=== PATIENT | male | born 1960 | race Hispanic/Latino ===

== ENCOUNTER 2017-06-02 07:14 | Day surgery (SDC) | payer OTHER ==
[2017-04-27 15:41] VITALS: BMI 31.5
[2017-06-02] MEDS ORDERED: Sodium Chloride 0.9% 10 ML ONE (10:24)
[2017-06-02] MEDS ORDERED: Fentanyl 100 MCG/2 ML VIAL ONE ×3 (10:41→13:01)
[2017-06-02] MEDS ORDERED: Midazolam HCl 2 mg/2 ml Vial ONE (10:42)
[2017-06-02] MEDS ORDERED: Dexamethasone 20 MG/5 ML VIAL ONE (10:51)
[2017-06-02] MEDS ORDERED: Lidocaine 2% PF 10 ML AMP (For Epidural Use) ONE (10:51)
[2017-06-02] MEDS ORDERED: Ondansetron HCl/PF 4 MG/2 ML Vial ONE (10:51)
[2017-06-02] MEDS ORDERED: PHENYLEPHRINE-NS 100 MCG/ML 10 ML SYRINGE ONE (10:51)
[2017-06-02] MEDS ORDERED: Glycopyrrolate 0.2 MG/ML 5 ML SYRINGE ONE (10:51)
[2017-06-02] MEDS ORDERED: Propofol 200 MG/20 ML VIAL ONE (10:51)
--- NOTE | 2017-06-02 13:47 | OP ---
DATE OF PROCEDURE: 06/02/2017 SURGEON: Cam Britt M.D. CONCESSIONIST: Alma Delia Raman PA-C PROCEDURE: L4-5 laminectomy, posterolateral arthrodesis, pedicle screw instrumentation, demineraliz ed bone matrix, and local morselized autograft L4-5. PROCEDURE IN DETAIL: The patient was brought into the operating room, intubated. He was rolled in the prone position on gel-filled chest rolls. The previous incision was reopened and the L4-5 area was exposed. We performed complete L5 and inferior L4 laminectomies and removed the right L4-5 syno vial cyst, completely decompressing the neural elements. We next placed pedicle screws at left L4 a nd left L5 using lateral fluoroscopic guidance. A marilia was secured between the screws, connected by nuts which were final tightened. The wound was then extensively irrigated, immaculate hemostasis wa s secured. A combination of demineralized bone matrix and local morselized autograft was laid over the right laminar and posterolateral surfaces for the purpose of arthrodesis. Vancomycin powder was applied and the wound was then closed in anatomic layers.
[2017-06-02] MEDS ORDERED: HYDROcodone/Acetaminophen 10/325 mg Tablet ONE (14:57)
== END 2017-06-02 16:20 | disposition home or self-care (01) ==
LOC: SDC 07:14
PROVIDERS: ATTEND Neurological Surgery
PROC: 0SG1071 Fusion of 2 or more Lumbar Vertebral Joints with Autologous Tissue Substitute, Posterior Approach, Posterior Column, Open Approach (ICD-10-PCS; principal; 2017-06-02)
DX: M48.061 Spinal stenosis, lumbar region without neurogenic claudication (principal); Z79.899 Other long term (current) drug therapy; Z98.890 Other specified postprocedural states
CPT/HCPCS: 76001; 96374; A4216; C1713; C1768; J1100; J2001; J2250; J2270; J2405; J2704; J3010; J3370; J3490

== ENCOUNTER 2017-06-17 16:40 | Outpatient (CLI) | payer OTHER ==
--- NOTE | 2017-06-17 18:29 | RAD ---
LUMBAR SPINE 3 VIEW: Date: 06/17/17 HISTORY: M48.06, lumbar stenosis. COMPARISON: MRI lumbar spine dated 03/17/17. FINDINGS: There is unilateral left posterior spinal fusion at L4-5 without hardware complication. Laminectomy change at these levels. There is anterolisthesis of L4 over L5, approximately 5.0 mm. No acute superimposed fracture or malalignment. IMPRESSION: 1. Unilateral left posterior spinal fusion and laminectomy changes. No hardware complication. 2. Anterolisthesis of L4 over L5, approximately 5.0 mm. POS: [facility]
== END 2017-06-17 16:41 | disposition home or self-care (01) ==
LOC: TBSIIMAG 16:40
PROVIDERS: ATTEND Physician Assistant
DX: M48.061 Spinal stenosis, lumbar region without neurogenic claudication (principal)
CPT/HCPCS: 72100

== ENCOUNTER 2023-03-26 10:12 | Outpatient (CLI) | payer BC | END 2023-03-26 10:13 | disposition home or self-care (01) | LOC: RAD 10:12 | PROVIDERS: ATTEND Family Medicine | DX: Z01.818 Encounter for other preprocedural examination (principal) | CPT/HCPCS: 71046 ==